=== PATIENT | female | born 1965 | race Caucasian/White ===

== ENCOUNTER 2019-12-17 13:05 | Outpatient (CLI) | payer BC | END 2019-12-17 23:59 | disposition home or self-care (01) | LOC: RAD 13:05 | PROVIDERS: ATTEND Otolaryngology | DX: K21.9 Gastro-esophageal reflux disease without esophagitis (principal); R13.14 Dysphagia, pharyngoesophageal phase; R49.0 Dysphonia; J38.7 Other diseases of larynx | CPT/HCPCS: 74230 ==

== ENCOUNTER 2022-03-28 07:14 | Day surgery (SDC) | payer BC ==
[2022-03-21 14:35] LABS: BASOPHILS # (AUTO) 0.1 X10'3 (0-0.2); BASOPHILS % (AUTO) 1.2 % (0-1); EOSINOPHILS # (AUTO) 0.2 X10'3 (0-0.9); EOSINOPHILS % (AUTO) 3.7 % (0-6); LYMPHOCYTES # (AUTO) 1.9 X10'3 (1.1-4.8); LYMPHOCYTES % (AUTO) 40.5 % (21-51); MEAN CORPUSCULAR HEMOGLOBIN 27.9 PG (27.0-31.0); MEAN CORPUSCULAR HGB CONC 32.9 g/dL (33.0-36.5); MEAN PLATELET VOLUME 7.3 FL (7.4-10.4); MONOCYTES # (AUTO) 0.6 X10'3 (0-0.9); MONOCYTES % (AUTO) 12.5 % (2-12); NEUTROPHILS % (AUTO) 42.1 % (42-75); PRE OP HEMATOCRIT 42.2 % (35.0-45.0); PRE OP HEMOGLOBIN 13.9 g/dL (12.0-16.0); PRE OP PLATELET COUNT 244 X10'3 (140-440); RED BLOOD COUNT 4.96 X10'6 (4.20-5.60); RED CELL DISTRIBUTION WIDTH 13.4 % (11.5-14.5)
[2022-03-21 14:46] LABS: ALBUMIN 3.8 G/DL (3.4-5.0); ALBUMIN/GLOBULIN RATIO 1.1 (1.1-1.5); ALKALINE PHOSPHATASE 94 IU/L (46-116); BLOOD UREA NITROGEN 21 MG/DL (7-18); BUN/CREATININE RATIO 32.3 (6.6-38.0); CALCIUM 8.9 MG/DL (8.5-10.1); CHLORIDE 104 MMOL/L (99-107); CREATININE 0.65 MG/DL (0.40-0.90); PRE OP ALT 55 U/L (30-65); PRE OP ANION GAP 7 (8-16); PRE OP AST 42 U/L (10-37); PRE OP BILIRUB, TOTAL 0.5 MG/DL (0.0-1.0); PRE OP GLUCOSE 90 MG/DL (70-104); PRE OP POTASSIUM 4.1 MMOL/L (3.4-5.1); PRE OP SODIUM 140 MMOL/L (135-145); TOTAL CARBON DIOXIDE 29.2 MMOL/L (24-32); TOTAL PROTEIN 7.4 G/DL (6.4-8.2); eGFR > 90 ML/MIN
[2022-03-28] VITALS (9 sets, daily range): BP systolic 127–144; BP diastolic 53–73
[~2022-03-28] VITALS: Ht 162.6 cm; Wt 88.7 kg
[~2022-03-28 07:14] MED LIST: HYDR-3972 PO; SERT50TA PO; ceFAZolin inj. 2,000 MG in dextrose 5%-water 100 ML IV ONE; clindamycin-Cleocin 900mg/D5W 50 ML IV ONE; famotidine 20mg tablet PO ONE; ringers solution, lacted 1,000 ML IV SCH
[2022-03-28] MEDS ORDERED: BUPIVAcaine 0.5% inj/PF 0 ML ONE (07:54)
[2022-03-28] MEDS ORDERED: ROPIVAcaine 0.5% (5mg/ml) 30ml vial ONE (07:54)
[2022-03-28] MEDS ORDERED: sevoflurane 250ml liquid IH ONE (09:02)
[2022-03-28] MEDS ORDERED: FENTANYL CITRATE/PF 50 MCG/1 ML VIAL ONE (09:06)
[2022-03-28] MEDS ORDERED: MIDAZolam 1 MG/ML 5ML VIAL ONE (09:07)
[2022-03-28] MEDS ORDERED: dexamethasone sod phosphate 4mg/ml inj. ONE (09:07)
[2022-03-28] MEDS ORDERED: propofol inj 20 ML IV ONE (09:07)
[2022-03-28] MEDS ORDERED: triamcinolone acetonide 40mg/ml inj ONE (10:10)
[2022-03-28] MEDS ORDERED: ondansetron/PF 4mg/2ml inj ONE (10:11)
[2022-03-28] MEDS ORDERED: HYDROcodone/acetaminophen 10/325mg tab PO PRN (10:25)
--- NOTE | 2022-03-28 10:25 | NUR ---
Received from OR via BED, accompanied by Anesthesiologist and report given by Anesthesiologist. PATIENT WAKING UP, NO S/S OF PAIN, V/S WNL, SCD ON, 20G TO RUE, drsg to LEFT shoulder-CDI with SLING
[2022-03-28] MEDS ORDERED: ROPIVAcaine 0.2% (10 MG/5 ML) BOLUS INJECTION INTERSCALE PRN (10:30)
[2022-03-28] MEDS ORDERED: ondansetron/PF 4mg/2ml inj IV PRN (10:30)
[2022-03-28] MEDS ORDERED: morphine 2 MG/ML inj. syringe IV PRN (10:30)
[2022-03-28] MEDS ORDERED: morphine 4 MG/ML inj SYRINge IV PRN (10:30)
[2022-03-28] MEDS ORDERED: meperidine/PF 25mg/ml syringe IV PRN ×3 (10:30)
[2022-03-28] MEDS ORDERED: proCHLORperazine 10 MG/2 ml inj IV PRN (10:30)
[2022-03-28] MEDS ORDERED: ROPIVAcaine 0.2%/PF PUMP/bolus 545 ML INTERSCALE SCH (10:30)
[2022-03-28] MEDS ORDERED: ringers solution, lacted 1,000 ML IV SCH (10:30)
--- NOTE | 2022-03-28 11:35 | NUR ---
PATIENT A&OX4, DENIES PAIN, V/S WNL, SCD OFF, 20G TO RUE D/C, drsg to LEFT shoulder-CDI with SLING. I HAVE REVIEWED D/C INSTRUCTIONS ALONG WITH ONQ BALL INSTRUCTIONS AND HANDOUTS WITH PATIENT and they have verbalized understanding patient d/c home with all belongings and family gave transport home.
== END 2022-03-28 11:35 | disposition home or self-care (01) ==
LOC: PAS 07:14
PROVIDERS: ATTEND Orthopaedic Surgery
DX: M19.012 Primary osteoarthritis, left shoulder (principal); M75.52 Bursitis of left shoulder; Z79.899 Other long term (current) drug therapy; Z98.890 Other specified postprocedural states; Z90.49 Acquired absence of other specified parts of digestive tract; Z88.8 Allergy status to other drugs, medicaments and biological substances; F41.9 Anxiety disorder, unspecified; G89.18 Other acute postprocedural pain
CPT/HCPCS: 29822; 36415; 64415; 76942; 80053; 82948; 85025; J1100; J2250; J2405; J2704; J2795; J3010; J3301; J3490; J7120; Z7506; Z7508; Z7512; A4565; A4618; A6449; A7000; J0690; J7060; S0020